=== PATIENT | male | born 1990 | race Two or more races ===

== ENCOUNTER 2021-10-24 22:22 | Emergency (ER) | payer BC ==
[~2021-10-24] VITALS: Ht 172.7 cm; Wt 81.6 kg
--- NOTE | 2021-10-24 22:57 | NUR ---
URINE COLLECTED AND SENT TO LAB
[2021-10-24 23:19] LABS: BASOPHILS # (AUTO) 0.1 K/uL (0.0-0.2); BASOPHILS % (AUTO) 0.8 % (0.0-2.0); EOSINOPHILS % (AUTO) 5.9 % (0.0-6.0); HEMATOCRIT 51 % (39-51); HEMOGLOBIN 17.3 g/dL (13.5-17.5); LYMPHOCYTES # (AUTO) 3.4 K/uL (0.8-4.8); LYMPHOCYTES % (AUTO) 36.8 % (20.0-44.0); MEAN CORPUSCULAR HGB CONC 34 g/dl (31.0-36.0); MEAN CORPUSCULAR VOLUME 94 fL (80-96); MONOCYTES # (AUTO) 0.7 K/uL (0.1-1.30); MONOCYTES % (AUTO) 7.9 % (2.0-12.0); NEUTROPHILS # (AUTO) 4.4 K/uL (1.8-8.9); NEUTROPHILS % (AUTO) 48.6 % (43.0-81.0); PLATELET COUNT (AUTO) 290 K/uL (150-450); RED BLOOD CELL COUNT(AUTO) 5.38 MIL/uL (4.5-6.0); WHITE BLOOD COUNT (AUTO) 9.1 K/uL (4.3-11.0)
[2021-10-24 23:23] LABS: BILIRUBIN,URINE NEGATIVE (NEGATIVE); COLOR,URINE YELLOW (YELLOW); LEUKOCYTE ESTERASE ,URINE NEGATIVE (NEGATIVE); NITRITE, URINE NEGATIVE (NEGATIVE); PH,URINE 5.5 (5.0-8.0); PROTEIN,URINE NEGATIVE (NEGATIVE); UGLUCOSE NEGATIVE (NEGATIVE); UROBILINOGEN,URINE 0.2 EU/dL (0.2)
[2021-10-24 23:36] LABS: CALCIUM, SERUM 8.3 mg/dL (8.5-10.1); CREATININE 0.9 mg/dL (0.6-1.3); POTASSIUM 4.2 mmol/L (3.5-5.1)
[2021-10-24 23:43] LABS: ALBUMIN 4.3 g/dL (3.4-5.0); BILIRUBIN,DIRECT 0.1 mg/dL (0.0-0.2); BILIRUBIN,TOTAL 0.3 mg/dL (0.2-1.0)
--- NOTE | 2021-10-25 07:30 | NUR ---
PATIENT AAOX3, BREATHING EVEN AND NON LABORED, RESTING IN BED
--- NOTE | 2021-10-25 10:18 | NUR ---
PAGED ENVIRONMENTAL ENGINEER SCIENTIST AND ASYA FOR A CALL BACK
--- NOTE | 2021-10-25 15:09 | NUR ---
CALLED JUANITA AND WAS NOTIFIED THAT SHE WILL BE HERE AT 1600
--- NOTE | 2021-10-25 17:08 | NUR ---
NIRAV [phone] ([facility] [place])
--- NOTE | 2021-10-25 17:20 | NUR ---
JUANITA WERNER AT BEDSIDE FOR EVAL.
--- NOTE | 2021-10-25 17:55 | NUR ---
5150 HOLD BROKEN BY RN JUANITA CRISIS AERONAUTICAL ENGINEERING OFFICER.
--- NOTE | 2021-10-25 17:58 | NUR ---
Patient discharged to home in stable condition. Written and verbal after care instructions given. Patient verbalizes understanding of instruction.
[2021-10-25 17:59] VITALS: BP 131/68
[2021-10-25] MEDS ORDERED: LORAZEPAM INJ 2 MG/ML VIAL IV ONE (18:00)
== END 2021-10-25 17:59 | disposition home or self-care (01) ==
LOC: ER 22:25
DX: F10.129 Alcohol abuse with intoxication, unspecified (principal); Y90.8 Blood alcohol level of 240 mg/100 ml or more; Z20.822 Contact with and (suspected) exposure to COVID-19; F31.9 Bipolar disorder, unspecified
CPT/HCPCS: 36415 ×2; 80048; 80076; 80143; 80307; 80320 ×2; 81003; 85025; 87426; 99285; C9803; G0480